=== PATIENT | female | born 1955 | race Hispanic/Latino ===

== ENCOUNTER 2019-12-16 10:21 | Day surgery (SDC) | payer BC ==
[~2019-12-16 10:21] MED LIST: LIDOCAINE MPF (2%) 20 MG/1 ML VIAL 5 ML ONE
[2019-12-16 11:37] LABS: Hematocrit 40.1 % (30.3-42.9); Hemoglobin 13.2 gm/dl (10.1-14.3); Mean Corpuscular HGB Conc 33 % (30-34); Mean Corpuscular Volume 92 fl (79-97); Platelet Count 317 K/mm3 (140-440); Red Blood Count 4.35 M/mm3 (3.65-5.03); Red Cell Distribution Width 14.7 % (13.2-15.2)
[2019-12-16 11:43] LABS: BUN/Creatinine Ratio 18; Blood Urea Nitrogen 11 mg/dL (7-17); Calcium 8.9 mg/dL (8.4-10.2); Hemolysis Index 13
[2019-12-16 11:47] LABS: INR 0.97 (0.87-1.13)
[2019-12-16 11:48] LABS: Partial Thromboplastin Time 38.4 Sec. (24.2-36.6)
[2019-12-16] MEDS ORDERED: SODIUM CHLORIDE 0.9% 500 ML 500 ML IV SCH (12:00)
--- NOTE | 2019-12-16 12:11 | Anesthesia Consultation ---
Anesthesia Consult and Med Hx Date of service: 12/16/19 - Airway Anesthetic Teeth Evaluation: Good ROM Head & Neck: Adequate Mental/Hyoid Distance: Inadequate Mallampati Class: Class III Intubation Access Assessment: Possibly Difficult - Pulmonary Exam CTA: Yes - Cardiac Exam Cardiac Exam: RRR - Pre-Operative Health Status ASA Pre-Surgery Classification: ASA3 Proposed Anesthetic Plan: MAC - Pulmonary Hx Asthma: Yes COPD: Yes (no recent exacerbations) Home Oxygen Therapy: No Hx Sleep Apnea: No (high STOP BANG score) - Cardiovascular System Hx Hypertension: Yes (took antihypertensives last night) Hx Heart Attack/AMI: No Hx Percutaneous Transluminal Coronary Angioplasty (PTCA): No Hx Cardia Arrhythmia: No Hx Peripheral Vascular Disease: 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 Reviewed cardiac studies dated 11/2019. TTE: EF 55-60%, moderate pHTN. Normal nuc stress test.
--- NOTE | 2019-12-16 12:14 | Anesthesia Day of Surgery ---
Anesthesia Day of Surgery - Day of Surgery Patient Examined: Yes Patient H&P Reviewed: Yes Patient is NPO: Yes
[2019-12-16] MEDS ORDERED: MIDAZOLAM 2 MG/2 ML INJ ONE (12:45)
[2019-12-16] MEDS ORDERED: HYDROmorphone 1 MG/1 ML INJ ONE (12:45)
[2019-12-16] MEDS ORDERED: propofoL 200 MG/20 ML VIAL IV ONE ×4 (12:46)
[2019-12-16] MEDS ORDERED: KETAMINE/STERILE WATER 50 MG/ML SYRINGE ONE (12:47)
[2019-12-16] MEDS ORDERED: HEPARIN 10,000 UNITS/10 ML VIAL ONE (12:54)
[2019-12-16] MEDS ORDERED: HEPARIN/NS 5000 UNIT/500ML 1,000 ML IR ONE (12:54)
[2019-12-16] MEDS: LIDOCAINE (2%) 20 MG/1 ML VIAL 20 ML MDV INFILTRATI ONE ×2 (13:14→13:17)
--- NOTE | 2019-12-16 13:48 | Short Stay Summary ---
Short Stay Documentation Date of service: 12/16/19 - History Principal diagnosis: Compression of vein, DVT H&P: obtained from office - Allergies and Medications Current Medications: Allergies codeine Allergy (Unverified 12/16/19 10:21) Hives Home Medications Medication Instructions Recorded Confirmed Last Taken Type Aspirin [Aspirin BABY CHEW TAB] 81 mg PO QDAY 12/16/19 12/16/19 12/15/19 History 1 tab Fluticasone/Umeclidin/Vilanter 100 mcg INHALATION DAILY PRN 12/16/19 12/16/19 Unknown History [Trelegy Ellipta 100-62.5-25] Losartan [Cozaar] 50 mg PO QDAY 12/16/19 12/16/19 12/15/19 History 1 tab amLODIPine [Norvasc] 5 mg PO DAILY 12/16/19 12/16/19 12/15/19 History 1 tab diphenhydrAMINE [Benadryl CAP] 25 mg PO Q8HR PRN 12/16/19 12/16/19 12/13/19 History 1 tab Active Medications Sodium Chloride (Nacl 0.9% 500 Ml) 500 mls @ 50 mls/hr IV DIRECT CHIP - Brief post op/procedure progress note Date of procedure: 12/16/19 Pre-op diagnosis: Compression of vein, DVT Post-op diagnosis: same Procedure: Bilateral lower extremity venogram, intravascular ultrasound Anesthesia: local Surgeon: SOTO LAMBERT Estimated blood loss: minimal Pathology: none Condition: stable - Disposition Condition at discharge: Good Disposition: DC-01 TO HOME OR SELFCARE Short Stay Discharge Plan Activity: advance as tolerated Weight Bearing Status: Weight Bear as Tolerated Diet: regular Wound: keep clean and dry, per your surgeon's advice Follow up with: FADY RIOJAS MD [Primary Care Provider] - 7 Days
--- NOTE | 2019-12-16 13:53 | Operative Report ---
Operative Report Operative Report: Exam: Bilateral lower extremity venogram, intravascular ultrasound Clinical indication: Patient with a history of common iliac vein DVT and ultrasound evidence of extrinsic compression with bilateral lower extremity leg swelling, pain and bulging varicose veins. Date: 12/16/2019 Procedure: Following an explanation of the risks, benefits and alternatives; written informed consent was obtained. The patient was brought to the angiographic suite and placed in supine position on the examination table. Init ial ultrasound evaluation of her proximal legs demonstrated patent femoral veins bilaterally. The patient's legs and groins were prepped and draped in the usual sterile fashion. 1% lidocaine was used for anesthesia. Under ultrasound guidance, the proximal right femoral vein was cannulated with a 7 cm 18-gauge needle. A 0.035 guidewire was advanced centrally. The needle was removed and a 5 [place] sheath placed. Access to the left proximal femoral vein was obtained in a similar fashion and an additional 5 [place] sheath placed. Contrast was injected through the left sheath. This demonstrates what appears to be stenosis involving the left common iliac vein and a decision was made to evaluate further with intravascular ultrasound. Over the guidewires, the 5 [place] sheaths were upsized to 10 [place] sheaths. Intravascular ultrasound was first performed through the right sheath. Imaged vessels include the IVC, right common iliac vein, right external iliac vein and right common femoral vein. Intravascular ultrasound was then performed through the left sheath. Imaged vessels include the left common iliac vein, left external iliac vein and left common femoral vein. This demonstrates only minimal narrowing involving the left common iliac vein without hemodynamically significant stenosis. There is a minimal amount of extrinsic compression at the inguinal ligaments however this is not hemodynamically significant as well. There is no evidence of DVT. Venography was performed through both sheaths simultaneously. This demonstrates a widely patent deep venous system. No evidence of DVT is identified. There is brisk drainage of the pelvic veins. At this point, the catheters, guidewires and sheaths were removed and hemostasis achieved using manual compression. Sterile compression dressings were placed bilaterally. The patient tolerated the procedure well. There were no immediate postprocedure complications. Sedation was provided by anesthesia services. Continuous cardiopulmonary monitoring was utilized. Impression: 1) Bilateral lower extremity venogram demonstrating resolution of the patient's previous DVT. No hemodynamically significant stenosis is iden tified. 2) Intravascular ultrasound of the IVC, bilateral common iliac veins, bilateral external iliac veins and bilateral common femoral veins demonstrating no hemodynamically significant stenosis. No residual DVT is identified.
[2019-12-16] MEDS ORDERED: traMADol 50 MG TAB PO PRN (15:14)
[2019-12-16] MEDS ORDERED: traMADol 50 MG TAB ONE (15:17)
[2019-12-16] MEDS ORDERED: ONDANSETRON 4 MG/2 ML INJ IV ONE (16:18)
[2019-12-16 17:13] VITALS: BP 148/74
== END 2019-12-16 10:22 | disposition home or self-care (01) ==
LOC: CATHLABREC 10:21
PROVIDERS: ATTEND Radiology Diagnostic Radiology
DX: I87.1 Compression of vein (principal); I11.0 Hypertensive heart disease with heart failure; I50.9 Heart failure, unspecified; I42.9 Cardiomyopathy, unspecified; E78.00 Pure hypercholesterolemia, unspecified; J44.9 Chronic obstructive pulmonary disease, unspecified; E66.9 Obesity, unspecified; Z68.43 Body mass index [BMI] 50.0-59.9, adult; Z88.5 Allergy status to narcotic agent; Z79.82 Long term (current) use of aspirin; Z79.899 Other long term (current) drug therapy; Z80.8 Family history of malignant neoplasm of other organs or systems; Z82.49 Family history of ischemic heart disease and other diseases of the circulatory system
CPT/HCPCS: 36415; 37252; 37253; 75822; 76937; 80048; 85027; 85610; 85730; C1753; C1769; C1894; J1170; J1644; J2250; J2405; J2704; J7040; Q9967